=== PATIENT | male | born 1980 | race Two or more races ===

== ENCOUNTER 2019-01-28 07:09 | Emergency (ER) | payer BC ==
[2019-01-28 07:13] VITALS: BP 148/102
--- NOTE | 2019-01-28 07:17 | ER Report ---
History and Physical Time Seen By MD: 07:17 Hx. of Stated Complaint: DENTAL PAIN ON LEFT SIDE OF LOWER JAW X 2 DAYS HPI/ROS Patient here traveling from [place], and complains of worsening left upper dental pain that started approximately 2 days ago. No fever chills. Able to take by mouth. No trismus. Remainder of the 14 system rev: Yes Allergies: Coded Allergies: No Known Drug Allergies (Unverified , 01/28/19) Reviewed Nurses Notes: Yes Old Medical Records Reviewed: Yes Hx Smoking: No Constitutional Vital Sign - Last 24 Hours 01/28/19 07:13 Temp 97.6 Pulse 95 Resp 18 Pulse Ox 96 O2 Delivery Room Air Physical Exam General Appearance: Alert, no distress. Mouth: Mucous membranes are moist, TTP to the left upper molar. No fractured tooth. No abscess. Throat: No erythema or exudates there is no tonsillar hypertrophy and uvula is midline. Neck is supple non tender, no adenopathy. Skin: Warm and dry, no rashes. Medical Decision Making ED Course/Re-evaluation ED Course Uncomplicated dental pain likely from a dental infection. No fracture. No abscess. No trismus. No fever. Will give Clindamycin and recommended ibuprofen for pain. The pt. will follow up with his dentist when he returns to [place] on . Decision to Disposition Date: Jan 28, 2019 Decision to Disposition Time: 07:30 Depart Departure Latest Vital Signs Vital Signs Date Time Temp Pulse Resp B/P (MAP) Pulse Ox O2 Delivery O2 Flow Rate FiO2 01/28/19 07:13 97.6 95 18 96 Room Air Impression: Primary Impression: Pain, dental Condition: Improved Disposition: HOME OR SELF-CARE New Scripts Ketorolac Tromethamine (KETOROLAC TROMETHAMINE) 10 Mg Tab 10 MG PO Q6H PRN for PAIN, #12 TAB 0 Refills Prov: MARIAMA WILCOX MD 01/28/19 Clindamycin Hcl (CLINDAMYCIN HCL) 300 Mg Capsule 300 MG PO Q6H, #40 CAPSULE Prov: MARIAMA WILCOX MD 01/28/19 Patient Instructions: Dental Caries (ED) MARIAMA WILCOX MD Jan 28, 2019 07:17
[2019-01-28] MEDS ORDERED: CLINDAMYCIN 150 MG CAP PO ONE (07:25)
[2019-01-28] MEDS ORDERED: IBUPROFEN 600 MG TAB PO ONE (07:25)
[2019-01-28] MEDS ORDERED: ANTIBIOTIC (07:27)
[2019-01-28] MEDS ORDERED: CLIN300C99 PO (07:31)
[2019-01-28] MEDS ORDERED: KET10 PO (07:31)
== END 2019-01-28 07:45 | disposition home or self-care (01) ==
LOC: ER 07:17
DX: K08.89 Other specified disorders of teeth and supporting structures (principal)
CPT/HCPCS: 99282